=== PATIENT | male | born 1995 | race Caucasian/White ===

== ENCOUNTER 2016-07-27 17:40 | Emergency (ER) | payer BC ==
[~2016-07-27 17:40] MED LIST: BACTROBAN15 GM TOP; CLEOCIN HCL300 M1 PO; HIBICLENS 4% L120 ML TOP; IBUPROFEN800 MG PO; NO MEDICATIONS; PHENERGAN25 MG PO; PREDNISONE PO; VOLTAREN50 MG PO; VOLTAREN75 MG PO
== END 2016-07-27 18:45 | disposition home or self-care (01) ==
LOC: CED 17:40 → CFTX 17:40
DX: M79.89 Other specified soft tissue disorders (principal); J45.909 Unspecified asthma, uncomplicated; F98.8 Other specified behavioral and emotional disorders with onset usually occurring in childhood and adolescence; Z88.2 Allergy status to sulfonamides; Z88.8 Allergy status to other drugs, medicaments and biological substances
CPT/HCPCS: 99282